=== PATIENT | female | born 1960 ===

== ENCOUNTER 2018-04-28 21:46 | Emergency (ER) | payer BC ==
[2018-04-28] MEDS ORDERED: Ondansetron ODT TAB* 4 MG PO ONE (22:20)
[2018-04-28] MEDS ORDERED: oxyCODONE/Acetamin 5/325 MG* TAB PO ONE (22:20)
[2018-04-28] MEDS ORDERED: Diazepam TAB(*) 5 MG PO ONE (23:09)
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
[2018-04-29 01:11] VITALS: BP 120/63
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
== END 2018-04-29 00:55 | disposition home or self-care (01) ==
LOC: ED 21:46
DX: S62.101A Fracture of unspecified carpal bone, right wrist, initial encounter for closed fracture (principal); W19.XXXA Unspecified fall, initial encounter; Y92.9 Unspecified place or not applicable
CPT/HCPCS: 25660; 99282; A9270-GY

== ENCOUNTER 2018-05-04 10:35 | Day surgery (SDC) | payer BC ==
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
[~2018-05-04 10:35] MED LIST: Buffered Lidocaine 0.9% SYRIN* 5 ML/SYR SYRINGE INTRADERM ONE; Famotidine IV* 10 MG/ML 2 ML (20 mg) IV ONE; Famotidine IV* 10 MG/ML 2 ML (20 mg) ONE; ROPIVACAINE 5 MG/ML 30 ML BTL (0.5%) ONE
[2018-05-04] MEDS ORDERED: ceFAZolin 2 GM PREMIX in ORs 2 GM/50 ML BAG IVPB ONE (10:43)
[2018-05-04] MEDS ORDERED: Midazolam* 1 MG/ML 5 ML VIAL (5 MG) ONE (11:44)
[2018-05-04] MEDS ORDERED: fentaNYL* 50 MCG/ML 2 ML VIAL (100 MCG VIAL) ONE (11:44)
[2018-05-04] MEDS ORDERED: oxyCODONE TAB* 5 MG TAB PO PRN (12:15)
[2018-05-04] MEDS ORDERED: HYDROmorphone INJ1* 1 MG/ML SYRINGE IV PRN (12:15)
[2018-05-04] MEDS ORDERED: Naloxone* 0.4 MG/ML 1 ML VIAL IV PRN (12:15)
[2018-05-04] MEDS ORDERED: Acetaminophen TAB* 325 MG PO PRN (12:15)
[2018-05-04] MEDS ORDERED: Ketorolac INJ* 30 MG/ML 1 ML VIAL ONE (13:05)
[2018-05-04] MEDS ORDERED: Propofol* 10 MG/ML 20 ML BTL IV PUSH ONE (13:05)
[2018-05-04] MEDS ORDERED: Dexamethasone IV* 4 MG/ML 1 ML (4 MG) ONE (13:05)
[2018-05-04] MEDS ORDERED: Lidocaine 2% PF * 5 ML VIAL ONE (13:05)
[2018-05-04] MEDS ORDERED: DiMENhydriNATE IV* 50 MG/ML VIAL ONE (13:05)
[2018-05-04] MEDS ORDERED: Ondansetron INJ* 2 MG/ML VIAL ONE (13:05)
[2018-05-04] MEDS ORDERED: oxyCODONE/Acetamin 5/325 MG* TAB ONE (14:30)
[2018-05-04 14:34] VITALS: BP 122/61
--- NOTE | 2018-05-04 14:47 | RAD ---
INDICATION: ORIF RIGHT wrist. Technique: 42 seconds of?fluoroscopy?was provided?for the physician proceduralist. REPORT: Spot images document volar cortical plate and screws traversing the distal metaphyseal fracture of the radius with resulting gross anatomic alignment. Ulnar styloid avulsion noted. IMPRESSION: Procedural control films. CPT II Codes: G9500
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
== END 2018-05-04 15:04 | disposition home or self-care (01) ==
LOC: OREAST 10:35
PROVIDERS: ATTEND Orthopaedic Surgery
DX: S52.571A Other intraarticular fracture of lower end of right radius, initial encounter for closed fracture (principal); M19.90 Unspecified osteoarthritis, unspecified site; W01.0XXA Fall on same level from slipping, tripping and stumbling without subsequent striking against object, initial encounter; Y92.9 Unspecified place or not applicable
CPT/HCPCS: 76000; A9270-GY; C1713; C1776; J0690; J1100; J1240; J1885; J2250; J2405; J2704; J2795; J3010